=== PATIENT | female | born 1995 ===

== ENCOUNTER 2021-11-14 03:24 | Inpatient (IN) | payer SELFPAY ==
[2021-11-14] MEDS ORDERED: miSOPROStol 200 MCG TAB ONE (03:55)
[2021-11-14] MEDS ORDERED: CARBOPROST TROMETHAMINE 250 MCG/1 ML INJ IM ONE (03:56)
[2021-11-14] MEDS ORDERED: ePHEDrine SULFATE 50 MG/1 ML INJ IV PRN (04:05)
[2021-11-14] MEDS ORDERED: BUTORPHANOL 2 MG/1 ML INJ IV PRN (04:05)
[2021-11-14] MEDS ORDERED: METHYLERGONOVINE MALEATE 0.2 MG/ML VIAL IM PRN (04:05)
[2021-11-14] MEDS ORDERED: fentaNYL 100 MCG/2 ML INJ IV PRN (04:05)
[2021-11-14] MEDS ORDERED: ACETAMINOPHEN 325 MG TAB PO PRN ×2 (04:05→05:04)
[2021-11-14] MEDS ORDERED: CARBOPROST TROMETHAMINE 250 MCG/1 ML INJ IM PRN (04:05)
--- NOTE | 2021-11-14 04:05 | Procedure Note ---
OB Delivery Note - Delivery Date of Delivery: 11/14/21 Surgeon: PAUL ALARCON Estimated blood loss: other (350 mL) - Vaginal Delivery presentation: vertex Delivery position: OA Intrapartum events: precipitous labor- <3hr Delivery induction: none Delivery monitor: external FHT, external uterine Route of delivery: Delivery placenta: spontaneous Delivery cord: 3 umbilical vessels Episiotomy: none Delivery laceration: 2nd degree, other (Right periurethral) Delivery repair: vicryl Anesthesia: local Delivery comments: This patient arrived in OB triage reporting regular and painful uterine contractions. Cervical exam was complete/100%/+2. She was rapidly brought back to labor and delivery. The patient precipitously delivered a liveborn male infant. Placenta was spontaneously delivered. Fundus was firm. Second-degree perineal laceration was repaired with 2-0 Vicryl and 3-0 Vicryl after infiltration with lidocaine 1%. A vaginal sweep was performed to ensure there were no retained sponges or instruments. The patient tolerated procedure well. - Infant A at 1 minute: 8 at 5 minutes: 9 Infant Gender: Male
--- NOTE | 2021-11-14 04:05 | History and Physical Report ---
History of Present Illness Date of examination: 11/14/21 Chief complaint: Contractions History of present illness: 26-year-old at 39 weeks gestation presents to OB triage reporting reg ular and painful uterine contractions every 3 to 5 minutes. There is no vaginal bleeding. There is no leaking of fluid. There is good movement. In OB triage, cervical exam was complete/100%/+2. The patient is admitted to labor and delivery in active labor. Precipitous vaginal delivery is anticipated. Past History Past Medical History: no pertinent history Past Surgical History: no surgical history Family/Genetic History: none Social history: no significant social history - Obstetrical History Expected Date of Delivery: 11/21/21 Actual Gestation: 39 Week(s) 0 Day(s) : 2 Para: 2 Hx # Term Pregnancies: 2 Medications and Allergies Allergies Allergy/AdvReac Type Severity Reaction Status Date / Time No Known Allergies Allergy Unverified 11/14/21 04:19 Review of Systems All systems: negative - Physical Exam Breasts: Positive: normal Cardiovascular: Regular rate Lungs: Positive: Normal air movement Abdomen: Positive: soft Genitourinary (Female): Positive: normal external genitalia, normal perenium Vulva: both: normal Vagina: Positive: normal moisture Uterus: Positive: enlarged Adnexa: both: normal Anus/Rectum: Positive: normal perianal skin Extremities: Positive: normal Deep Tendon Reflex Grade: Normal +2 - Obstetrical FHR: category 1 Uterine Contraction Monitor Mode: External Cervical Dilatation: 10 Cervical Effacement Percentage: 100 station: +2 Uterine Contraction Frequency (min): 5 Uterine Contraction Pattern: Regular Uterine Contraction Intensity: Moderate Results Result Diagrams: 11/14/21 04:30 All other labs normal. Assessment and Plan - Patient Problems (1) 39 weeks gestation of Current Visit: Yes Status: Acute Plan to address problem: care is up-to-date at [facility]. She is GBS negative. (2) Spontaneous onset of labor Current Visit: Yes Status: Acute Plan to address problem: This patient is an active labor. Admit to labor and delivery. Expect normal spontaneous vaginal delivery.
[2021-11-14] MEDS ORDERED: LACTATED RINGERS 1,000 ML IV SCH (04:15)
[2021-11-14] MEDS ORDERED: LIDOCAINE (2%) 20 MG/1 ML VIAL 20 ML MDV INFILTRATI ONE (04:23)
[2021-11-14] MEDS ORDERED: fentaNYL 100 MCG/2 ML INJ ONE (04:24)
[2021-11-14] MEDS ORDERED: OXYTOCIN DRIP 30 UNITS/500 ML BAG IV SCH (05:00)
[2021-11-14] MEDS ORDERED: HYDROcodone/ACETAMINOPHEN 5-325 MG TAB PO PRN (05:04)
[2021-11-14] MEDS ORDERED: BENZOCAINE/MENTHOL 20/0.5% TOP SPRAY 56 GM TP PRN (05:04)
[2021-11-14] MEDS ORDERED: LANOLIN/ZINC/DIMETHICONE (LANSINOH) 7 GM TP PRN (05:04)
[2021-11-14] MEDS ORDERED: WITCH HAZEL/ GLYCERIN PAD TP PRN (05:04)
[2021-11-14] MEDS ORDERED: MAGNESIUM HYDROXIDE (MOM) ORAL LIQD UDC PO PRN (05:04)
[2021-11-14 05:16] LABS: Hematocrit 35.3 % (30.3-42.9); Hemoglobin 12.1 gm/dl (10.1-14.3); Mean Corpuscular HGB Conc 34 % (30-34); Mean Corpuscular Volume 88 fl (79-97); Platelet Count 103 K/mm3 (140-440); Red Blood Count 4.02 M/mm3 (3.65-5.03); Red Cell Distribution Width 14.6 % (13.2-15.2)
[2021-11-14] MEDS: IBUPROFEN 800 MG TAB PO SCH ×3 (05:30→18:32)
[2021-11-14] MEDS: DOCUSATE SODIUM 100 MG CAP PO SCH (12:23)
[2021-11-15] MEDS: IBUPROFEN 800 MG TAB PO SCH ×3 (00:20→18:16)
[2021-11-15] MEDS: DOCUSATE SODIUM 100 MG CAP PO SCH ×2 (00:21→09:51)
[2021-11-15 08:36] LABS: Hematocrit 32.6 % (30.3-42.9); Hemoglobin 10.9 gm/dl (10.1-14.3); Mean Corpuscular HGB Conc 34 % (30-34); Mean Corpuscular Volume 89 fl (79-97); Platelet Count 113 K/mm3 (140-440); Red Blood Count 3.68 M/mm3 (3.65-5.03); Red Cell Distribution Width 14.8 % (13.2-15.2)
--- NOTE | 2021-11-15 14:52 | Progress Note ---
Assessment and Plan A: PPD # 1 -stable P: Discharge home today Discharge instructions given Subjective - Subjective Date of service: 11/15/21 Principal diagnosis: - PPD #1 Patient reports: appetite normal : doing well Objective - Vital Signs Latest vital signs: Vital Signs Temp Pulse Resp BP Pulse Ox Pulse Ox 11/15/21 09:20 100 11/15/21 08:53 97.9 F 60 18 99/58 100 11/15/21 00:53 98.2 F 60 20 111/67 100 11/14/21 19:50 100 11/14/21 16:55 97.6 F 60 16 111/68 100 Intake and Output 11/14/21 11/15/21 11/15/21 22:59 06:59 14:59 Intake Total 240 120 Output Total 1100 Balance -860 120 Intake: Oral 240 120 Output: Urine 1100 Void 1100 Other: Total, Intake Amount 240 120 Total, Output Amount 600 # Voids Void 1 1 - Exam Breasts: Present: deferred Cardiovascular: Present: Regular rate Lungs: Present: Clear to auscultation Abdomen: Present: normal appearance Vulva: both: normal Uterus: Present: fundal height below umbilicus Extremities: Present: normal Deep Tendon Reflex Grade: Normal +2 - Labs Labs: Abnormal lab results 11/15/21 Range/Units 08:15 Plt Count 113 L (140-440) K/mm3
--- NOTE | 2021-11-15 14:57 | Discharge Summary ---
Providers - Providers Date of Admission: 11/14/21 04:26 Date of discharge: 11/15/21 Attending physician: PAUL ALARCON MD Primary care physician: PAUL ALARCON MD Hospitalization Reason for admission: active labor Delivery: Episiotomy: none Laceration: 2nd degree Other procedures: none complications: none Discharge diagnosis: IUP at term delivered baby: female Condition at discharge: Good Disposition: 01 HOME / SELF CARE / HOMELESS Plan - Provider Discharge Summary Activity: routine, no sex for 6 weeks, no strenuous exercise Diet: routine Instructions: routine Additional instructions: [] Smoking cessation referral if applicable(refer to patient education folder for contact #) [] Refer to [facility]'s [facility] Booklet Call your doctor immediately for: * Fever > 100.5 * Heavy vaginal bleeding ( >1 pad per hour) * Severe persistent headache * Shortness of breath * Reddened, hot, painful area to leg or breast * Drainage or odor from incision. * Keep incision clean and dry at all times and follow doctor's instructions regarding bathing/showering - Follow up plan
[2021-11-16] MEDS: IBUPROFEN 800 MG TAB PO SCH ×3 (00:37→13:30)
[2021-11-16] MEDS: DOCUSATE SODIUM 100 MG CAP PO SCH ×2 (00:37→13:30)
[2021-11-16 14:56] VITALS: BP 115/69
== END 2021-11-16 14:00 | disposition home or self-care (01) | DRG 807 ==
LOC: TRG 03:24 → APU 03:26 → LD 04:26 → TRG 04:26 → OB 09:48
PROVIDERS: ADMIT Obstetrics & Gynecology Gynecology; ATTEND Obstetrics & Gynecology Gynecology
PROC: 10E0XZZ Delivery of Products of Conception, External Approach (ICD-10-PCS; principal; 2021-11-14)
DX: O62.3 Precipitate labor (principal); Z37.0 Single live birth; Z3A.39 39 weeks gestation of pregnancy; Z20.822 Contact with and (suspected) exposure to COVID-19; O70.1 Second degree perineal laceration during delivery
CPT/HCPCS: 36415; 85027; 86850; 86900; 86901; G0378; J3010; U0003